=== PATIENT | female | born 1945 | race Caucasian/White ===

== ENCOUNTER 2021-04-05 20:34 | Emergency (ER) | payer OTHER ==
[2021-04-05 21:21] LABS: HEMOGLOBIN 14.7 gm/dl (12.3-15.3); RED BLOOD COUNT 4.8 M/UL (4.00-5.10); WHITE BLOOD COUNT 17.6 K/UL (4.5-11.0)
[2021-04-05 21:56] LABS: BUN/CREATININE RATIO 21 (0-10)
[2021-04-06] MEDS ORDERED: HYDROCODON-ACE1 EAC4 PO (02:11)
[2021-04-06] MEDS ORDERED: PROTONIX40 MG PO (02:11)
[2021-04-06] MEDS ORDERED: ZOFRAN ODT 4 MG4 MG SL (02:11)
== END 2021-04-06 02:35 | disposition home or self-care (01) ==
LOC: ER1 20:34
DX: K80.80 Other cholelithiasis without obstruction (principal); E11.65 Type 2 diabetes mellitus with hyperglycemia; E78.5 Hyperlipidemia, unspecified; I10 Essential (primary) hypertension
CPT/HCPCS: 71045; 80053; 81001; 82150; 82550; 82553; 82962; 83690; 83874; 84484; 85025; 93005; 96374; 96375; 99284; J2270; J2405

== ENCOUNTER → 2021-04-10 | Outpatient (CLI) | payer OTHER ==
[~2021-04-10] MED LIST: HYDROCODON-ACE1 EAC4 PO; PROTONIX40 MG PO; ZOFRAN ODT 4 MG4 MG SL
== END ==
LOC: US 09:40
DX: R10.9 Unspecified abdominal pain (principal); K21.9 Gastro-esophageal reflux disease without esophagitis; K76.0 Fatty (change of) liver, not elsewhere classified; K82.8 Other specified diseases of gallbladder; K80.80 Other cholelithiasis without obstruction
CPT/HCPCS: 76700